=== PATIENT | female | born 1945 | race Caucasian/White ===

== ENCOUNTER 2019-11-16 05:19 | Inpatient (IN) ==
--- NOTE | 2019-11-01 16:14 | PAT Medication Instructions ---
Medication Instructions Date of Service November 01, 2019 Home Medications aspirin 81 mg tablet,delayed release 81 mg PO HS atorvastatin 10 mg tablet 10 mg PO HS levothyroxine 75 mcg capsule 75 mcg PO QAM calcium carb-vitamin D3-vit K2 2 tab PO HS fluticasone propionate [Flonase Allergy Relief] 1 spray INTRANASAL QAM loratadine [Claritin] 10 mg PO HS PRN rizatriptan [Maxalt] 10 mg PO UD PRN Take morning of surgery With a small sip of water, OTHERWISE NOTHING TO EAT OR DRINK AFTER MIDNIGHT: levothyroxine 75 mcg capsule 75 mcg PO QAM fluticasone propionate [Flonase Allergy Relief] 1 spray INTRANASAL QAM rizatriptan [Maxalt] 10 mg PO UD PRN (if needed) Take evening before surgery aspirin 81 mg tablet,delayed release 81 mg PO HS atorvastatin 10 mg tablet 10 mg PO HS calcium carb-vitamin D3-vit K2 2 tab PO HS loratadine [Claritin] 10 mg PO HS PRN (if needed) rizatriptan [Maxalt] 10 mg PO UD PRN (if needed) Other Notes If you have any questions please call us at [phone] or [phone] or [phone] or [phone]
--- NOTE | 2019-11-05 10:48 | Anesthesiology Consultation ---
Date of Service November 05, 2019 Assessment & Plan (1) Encounter for pre-operative examination: COVID Status: As of 11/01 nurse assessment, patient denies travel to endemic area, known exposure/sick contacts, or symptoms of COVID19. Preoperative COVID19 testing to be completed prior to surgery. Chart Review Chart Review: Acceptable Risk for Surgery and Patient seen in Pre Admission Testing Teaching & Discussion Instructed NPO after midnight before surgery, except medications with 15 cc of water. Medication instructions provided according to the [facility] guidelines. History Surgery Operation Date: 10/12/19 12:50 Proposed Procedures p Right Anterior Total Hip Arthroplasty - Jason Del Castillo DO Operation Date: 11/16/19 07:00 Proposed Procedures p Right Anterior Total Hip Arthroplasty - Jason Del Castillo DO Height/Weight Height: 5 ft 6 in Weight: 61.4 kg Allergies Allergy/AdvReac Type Severity Reaction Status Date / Time nitrofurantoin Allergy Mild upset Verified 10/29/19 09:50 stomach Medications Home Medications Medication Instructions Recorded Confirmed Last Taken aspirin 81 mg tablet,delayed 81 mg PO HS 07/25/19 10/29/19 Unknown release atorvastatin 10 mg tablet 10 mg PO HS 07/25/19 10/29/19 Unknown levothyroxine 75 mcg capsule 75 mcg PO QAM 07/25/19 10/29/19 Unknown calcium carb-vitamin D3-vit K2 2 tab PO HS 09/14/19 10/29/19 Unknown fluticasone propionate [Flonase 1 spray INTRANASAL QAM 09/14/19 10/29/19 Unknown Allergy Relief] loratadine [Claritin] 10 mg PO HS PRN 09/14/19 10/29/19 Unknown rizatriptan [Maxalt] 10 mg PO UD PRN 09/14/19 10/29/19 Unknown Past Medical History Medical History (Updated 11/06/19 @ 12:41 by Frandy Ramos) Fallot tetralogy s/p repair/correction at age 20. Heart murmur Mild MR on echo 2018. No murmur noted on exam at [facility]. Hx of migraines Hyperlipidemia Hypothyroidism Osteoarthritis Exercise / Class Metabolic Activity II 4-5 Yardwork/Stairs/Walk up hill (limited by hip pain but no SOB or CP, does stairs daily) Past Family History Family History Mother Family history of diabetes mellitus Uncle Family history of diabetes mellitus Grandfather (Paternal) Family history of diabetes mellitus PT STATES MATERNAL GRANDFATHER Other Prostate cancer Past Surgical History Surgical History H/O heart surgery AT AGE 20 REPAIRED VSD AND PULMONARY OVERRIDE REPAIR (AT [place]) History of cardiac cath History of colonoscopy [place] teeth removed Past Anesthesia History No Hx of Anesthesia Complications and No Family Hx of Anesthesia Complications History of PONV No Hx of PONV and No Hx of Motion Sickness Social History Smoking Status: Never smoker Do You Dip or Chew Tobacco: No Hx Alcohol Use: Yes Alcohol type: hard liquor alcohol intake frequency: a few times a month Alcohol Intake Frequency Comment: 1 X A MONTH Hx Substance Use: No substance use type: does not use Review of Systems Pt denies any recent chest pain, shortness of breath, palpitations, cough, fever or URI. Physical Exam Vital Signs BP: 90/60 (pt asymptomatic, reports this is normal for her) P: 60bpm SPO2: 97% RA T: 97.7 F R: 16 ENMT Mouth: + dental restorations (few crowns on molars); no chipped teeth and no loose teeth Thyromental Distance: > or= 3.5 Finger Breadths (4) Mallampati Class: II Neck normal visual inspection; neck extension not limited Respiratory normal respiratory effort Auscultation: lungs clear to auscultation bilaterally Cardiovascular Rate/Rhythm: regular rate and regular rhythm Heart Sounds: no murmur Extremities: no edema Chest (Breasts) Additional Comments: Protuberant sternum Testing Laboratory Results 11/05/19 10:56 11/05/19 10:56 PT 10.9 Seconds (9.0-12.0) 11/05/19 10:56 INR 1.0 (0.9-1.1) 11/05/19 10:56 APTT 28.8 Seconds (21.0-31.0) 11/05/19 10:56 Blood Type A Positive 11/05/19 10:56 Antibody Screen NEGATIVE 11/05/19 10:56 Electrocardiogram Date: 06/13/19 Findings: + NSR @ (62bpm) and + RBBB No significant change from 06/13/18. Chest X-Ray Date: 11/05/19 IMPRESSION: 1. Right-sided aortic arch 2. Indistinctness of the left heart border, likely chronic 3. No evidence of failure. No evidence of lobar consolidation. Echocardiogram Date: 07/24/18 EF: 59% Aortic root is mildly enlarged with diameter of 3.8 cm. The proximal ascending thoracic aorta is mildly enlarged with diameter 4.1 cm. There is an intact ventricular septal patch with no residual VSD. The LV wall thickness and wall motion are normal. LV systolic function is normal. Grade 1 diastolic dysfunction. Mild mitral regurgitation present. Pulmonic stenosis is absent. There is no significant pulmonary regurgitation. Compared to the prior study dated 09/26/2014, there is been no significant interval change, with stable measurements of the aortic root and proximal ascending aorta.
--- NOTE | 2019-11-05 11:24 | XRay Report ---
XR chest Pre-admission PA/Lat CLINICAL HISTORY: Preoperative chest COMPARISON STUDY: No previous studies for comparison. FINDINGS: There are postsurgical changes of midline sternotomy. There is a right-sided aortic arch. T he heart is normal in size. There is indistinctness the left heart border finding which is likely chr onic. There is no lobar consolidation. There are no pleural effusions. There is no failure.[ IMPRESSION: 1. Right-sided aortic arch 2. Indistinctness of the left heart border, likely chronic 3. No evidence of failure. No evidence of lobar consolidation.. ACT 112: Negative or not required by law. Electronically signed by: Andrea Paniagua M.D. 11/05/2019 11:23 AM
[2019-11-05 11:49] LABS: Basophils # (auto) 0.02 K/uL (0-0.2); Basophils % (auto) 0.3 %; Eosinophils # (auto) 0.12 K/uL (0-0.5); Hematocrit (blood only) 42.3 % (37-47); Hemoglobin 14.3 g/dL (12.0-16.0); Immature Granulocytes # (auto) 0.02 K/uL (0.00-0.02); Immature Granulocytes % (auto) 0.3 %; Lymphocytes # (auto) 1.75 K/uL (1.2-3.4); Lymphocytes % (auto) 28.8 %; Mean Corpuscular Hemoglobin 30.4 pg (25-34); Mean Corpuscular Hgb Conc 33.8 g/dL (32-36); Mean Corpuscular Volume 89.8 fL (80-100); Mean Platelet Volume 9.4 fL (7.4-10.4); Monocytes # (auto) 0.61 K/uL (0.11-0.59); Neutrophils # (auto) 3.55 K/uL (1.4-6.5); Neutrophils % (auto) 58.6 %; Platelet Count 246 K/uL (130-400); RDW Coefficient of Variation 13.4 % (11.5-14.5); RDW Standard Deviation 44.1 fL (36.4-46.3); Red Blood Count 4.71 M/uL (4.2-5.4); White Blood Count 6.07 K/uL (4.8-10.8)
[2019-11-05 11:57] LABS: BUN Creatinine Ratio 18.7 (10-20); Calcium 9.3 mg/dl (8.5-10.1); Creatinine Clr Calc Pharmacy 50.6 ml/min; Est GFR (African American) 70.2; Est GFR (Non-African American) 60.6; Potassium 4.5 mmol/L (3.5-5.1)
[2019-11-05 12:09] LABS: Partial Thromboplastin Time 28.8 Seconds (21.0-31.0); Prothrombin Time 10.9 Seconds (9.0-12.0)
--- NOTE | 2019-11-15 15:42 | History & Physical Report ---
Date of Service November 15, 2019 Assessment & Plan (1) Osteoarthritis of right hip: We will proceed with a right anterior total hip arthroplasty. Postoperatively she will be started on aspirin for DVT prophylaxis and kept overnight in the hospital for postoperative medical management. She plans to use home health upon discharge. Debbie is a low risk for joint placement surgery. She does not have any major comorbidities. Present on Admission?: Yes History of Present Illness Chief Complaint: Primary osteoarthritis of the right hip Primary Care Provider: Isaias Jefferson DO Debbie is a pleasant 73-year-old female who has been having a 1-1/2 to 2-year history of increasing right hip pain. The pain is in her groin and radiates down to her back side. It has been getting worse over time. She has done conservative treatment including physical therapy. She has failed injections into the hip joint as well. X-rays and clinical examination have been diagnostic for advanced osteoarthritis of the right hip. After failing extensive conservative treatment, she has elected to proceed with a right anterior total hip arthroplasty. Allergies Allergy/AdvReac Type Severity Reaction Status Date / Time nitrofurantoin Allergy Mild upset Verified 10/29/19 09:50 stomach Home Medications Home Medications Medication Instructions Recorded Confirmed Type aspirin 81 mg tablet,delayed 81 mg PO HS 07/25/19 10/29/19 History release atorvastatin 10 mg tablet 10 mg PO HS 07/25/19 10/29/19 History levothyroxine 75 mcg capsule 75 mcg PO QAM 07/25/19 10/29/19 History calcium carb-vitamin D3-vit K2 2 tab PO HS 09/14/19 10/29/19 History fluticasone propionate [Flonase 1 spray INTRANASAL QAM 09/14/19 10/29/19 History Allergy Relief] loratadine [Claritin] 10 mg PO HS PRN 09/14/19 10/29/19 History rizatriptan [Maxalt] 10 mg PO UD PRN 09/14/19 10/29/19 History Past Med/Surg History Medical History Fallot tetralogy s/p repair/correction at age 20. Heart murmur Mild MR on echo 2018. No murmur noted on exam at [facility]. Hx of migraines Hyperlipidemia Hypothyroidism Osteoarthritis Surgical History H/O heart surgery AT AGE 20 REPAIRED VSD AND PULMONARY OVERRIDE REPAIR (AT [place]) History of cardiac cath History of colonoscopy [place] teeth removed Family History Mother Family history of diabetes mellitus Uncle Family history of diabetes mellitus Grandfather (Paternal) Family history of diabetes mellitus PT STATES MATERNAL GRANDFATHER Other Prostate cancer Social History Preferred Language: Wolof Communication Ability: Effective Proposition Player Required: No Beliefs That Will Affect Care: None Current Living Situation: Alone Other Information That Helps Us Care for You: No Feels Safe at Home: Yes Safety Concerns: Feels Safe At This Time Smoking Status: Never smoker Do You Dip or Chew Tobacco: No ; Second Hand Exposure: No ; Tobacco Cessation Education Requested by Patient: No Hx Alcohol Use: Yes Alcohol type: hard liquor Hx Substance Use: No Review of Systems Review of Systems: All systems reviewed & are unremarkable except as noted in HPI & below Physical Exam Constitutional: WD/WN, vitals as above Eyes: PERRL, conjunctivae normal, anicteric sclerae ENMT: external ear and nose normal, oropharynx normal Neck: trachea midline, no thyromegaly Respiratory: normal respiratory effort Cardiovascular: RRR, no murmur, no edema Gastrointestinal (Abdomen): normal bowel sounds, soft, nontender, no h epatosplenomegaly Musculoskeletal: Physical examination of the right hip reveals decreased range of motion with flexion, internal and external rotation. There is significant groin pain with forced internal rotation of the hip his leg lengths are essentially equal. Psychiatric: A+Ox3, euthymic affect Results & Data Results & Data ([facility]) Diagnostic Findings Radiographs of the right hip and pelvis demonstrate advanced osteoarthritis with joint space narrowing osteophyte formation and [id number] articulation. PG Care Time/CCT Total # of Minutes Spent Total Time Spent with Patient: Total time spent is greater than 50% in coordination of care (as documented) at patient's floor/unit and/or counseling patient: Coding Level of Care Code 06309 Initial Inpt Care Lvl 3 Diagnoses Osteoarthritis of right hip M16.11
[2019-11-16] MEDS ORDERED: TRAMADOL HCL 50 MG TABLET PO SCH (06:00)
[2019-11-16] MEDS ORDERED: LR 60ML/HR IV SCH (06:00)
[2019-11-16] MEDS ORDERED: ACETAMINOPHEN 500 MG TAB PO SCH (06:00)
[2019-11-16] MEDS ORDERED: CEFAZOLIN 1000MG 1,000 MG/7.5 ML SYR IV SCH (06:00)
[2019-11-16] MEDS ORDERED: TRANEXAMIC ACID 1,000 MG **IV Intra-op IV SCH (06:00)
[2019-11-16] MEDS ORDERED: LR 500ML BOLUS, THEN 15ML/HR IV SCH (06:00)
[2019-11-16] MEDS ORDERED: GABAPENTIN 300 MG CAP PO SCH (06:00)
[2019-11-16] MEDS ORDERED: dexAMETHasone 4 MG TAB PO SCH (06:00)
[2019-11-16] MEDS ORDERED: FAMOTIDINE 20 MG TAB PO SCH (06:00)
[2019-11-16] MEDS ORDERED: ROPIVACAINE 0.5% HCL/PF 150 MG, BUPIVACAINE 0.5% MPF 30 ML, EPINEPHrine 30MG/30ML (OR U... INSTIL SCH (06:00)
[2019-11-16] MEDS ORDERED: BUPIVACAINE 0.5 % 5 MG/1 ML PF 10ML VIAL ONE (06:19)
[2019-11-16] MEDS ORDERED: fentaNYL citrate 100 MCG/2 ML VIAL ONE (06:23)
[2019-11-16] MEDS ORDERED: MIDAZOLAM HCL 1 MG/ML 2ML VIAL ONE (06:23)
[2019-11-16] MEDS ORDERED: PROPOFOL IV EMULSION 10 MG/ML 20 ML VIAL IV ONE (06:23)
[2019-11-16] MEDS ORDERED: ONDANSETRON INJ 2 MG/ML 2 ML VIAL IV PRN ×2 (06:37→09:57)
[2019-11-16] MEDS ORDERED: ATROPINE SULFATE 0.1 MG/ML 10ML SYR IV PRN (06:37)
[2019-11-16] MEDS ORDERED: fentaNYL citrate 100 MCG/2 ML VIAL IV PRN (06:37)
[2019-11-16] MEDS ORDERED: ePHEDrine sulfate 50 MG/ML AMP IV PRN (06:37)
--- NOTE | 2019-11-16 06:37 | History & Physical Bridge Note ---
Date of Service November 16, 2019 History & Physical Bridge Note I have examined the patient, reviewed the History & Physical and in the interval since the performance of the History & Physical I have noted the following changes of clinical significance: no changes noted
[2019-11-16] MEDS ORDERED: ORTHO JOINT ANESTHETIC ONE (07:02)
[2019-11-16] MEDS ORDERED: ePHEDrine sulfate 50 MG/ML SYR ONE (07:24)
[2019-11-16] MEDS ORDERED: PHENYLEPHRINE 100MCG/ML 5ML SYR ONE (07:24)
[2019-11-16] MEDS ORDERED: PHENYLEPHRINE HCL 10 MG/ML VIAL ONE (07:36)
--- NOTE | 2019-11-16 08:14 | Operative Report ---
PG Post Operative Report Pre & Post Diagnosis Operation Date: 10/12/19 12:50 <No data on this case meets the specified criteria> Operation Date: 11/16/19 07:00 Pre-Op Diagnosis: Degenerative Joint Disease Right Hip Post-Op Diagnosis: Degenerative Joint Disease Right Hip I identified the patient and participated in the time-out.: Yes Procedure Operation Date: 10/12/19 12:50 <No data on this case meets the specified criteria> Operation Date: 11/16/19 07:00 Actual Procedures p Right Anterior Total Hip Arthroplasty(Right) - Jason Del Castillo DO Surgeon Jason Del Castillo, Casting Plug Assembler Jason Gould PAC Estimated Blood Loss 200 Findings Consistent with Post-Op Diagnosis Specimens Right femoral head Complications none Disposition Disposition: Recovery Room Indications Debbie is a pleasant 74-year-old female who is been dealing with chronic increasing right hip and groin pain. X-rays and clinical examination have been diagnostic for primary osteoarthritis of the right hip. After failing conservative treatment, she has elected to proceed with a right anterior total hip arthroplasty. Description of Procedure Implants used I used a Biomet Taperloc total hip arthroplasty system with a size 10 high offset micro Taperloc stem, a 52 mm G7 cup with a 25mm screw, an E1 polyethylene liner, a 36 mm ceramic head with a 0 neck. Debbie arrived at the hospital for the above procedure. She was seen in the preoperative holding area and the operative extremity was identified and signed. She was given a spinal anesthetic, a preoperative antibiotic, and TXA. She was then taken back to the operating room and laid on the table in the supine position. She was given basic sedation. The operative leg was secured to a Puristst leg positioner. The hip was then prepped and draped in sterile fashion. A timeout was done and the patient and the operative extremity was properly identified. An anterior approach was used. Dissection was taken down through the fascia and the tensor muscle belly was retracted laterally and the rectus was retracted medially. The circumflex vessels were identified and ligated. The capsule was then incised and tagged for later repair. The femoral neck was then cut and the femoral head was removed. The acetabulum was exposed. Time was spent doing a complete circumferential labral release. Sequential reaming of the acetabulum up to a size 51 reamer was done. Final reamings were done under fluoroscopy to ensure appropriate version. A Biomet 52 mm G7 cup was then impacted into place. A single 25 mm screw was placed. The E1 polyethylene liner was then snapped into place. Surrounding soft tissues were then injected with 100 cc of an orthopedic pain control cocktail. The proximal femur was then exposed. Sequential broaching up to a size 10 broach was done. Off that broach a size 32 head with a 0 neck was trialed. The hip was reduced and fluoroscopic images showed anatomic alignment of the implants in acceptable length. The broach was removed. The final size [] micro Taperloc stem was then impacted into place. A ceramic [] mm head with a [] neck was then impacted onto the stem and the hip was reduced. Final fluoroscopic images showed anatomic alignment of the hip. The capsule was then closed with #1 Vicryl suture. A dilute betadyne lavage was then done for 3 minutes. The joint was then irrigated with normal saline solution. The fascia was closed with #1 PDS suture. Skin was closed with 2-0 Vicryl, benny, and a Silverlon dressing. She was then transferred to a hospital bed and taken to the post anesthesia care unit in stable condition. She tolerated the procedure well. Jason Gould PA-C, was present for the entire procedure. He was critical for patient positioning, prepping, draping, retraction exposure, wound closure and application of sterile dressing. I attest to the content of the Intraoperative Record and any orders documented therein. Any exceptions are noted below.
--- NOTE | 2019-11-16 08:32 | Fluoroscopy Report ---
FL hip RT 1V CLINICAL HISTORY: RT ANTERIOR HIP COMPARISON STUDY: Pelvis and right hip radiographs July 25, 2019. FLUOROSCOPY TIME: 19 seconds. FLUOROSCOPIC IMAGES: 1 FINDINGS: Fluoroscopy was provided during total right hip arthroplasty. There is no fracture or unexp ected radiopaque foreign body. There is an acetabular screw. IMPRESSION: Fluoroscopy provided during total right hip arthroplasty. ACT 112: Negative or not required by law. Electronically signed by: Rajendra Curry M.D. 11/16/2019 8:31 AM
--- NOTE | 2019-11-16 09:25 | Anesthesiology Progress Note ---
Date of Service November 16, 2019 Anesthesia Post Procedure Vital Signs Vital Signs: Temp Pulse Pulse Resp BP BP Pulse Ox 11/16/19 09:15 79 14 96/54 L 99 11/16/19 09:05 86 20 93/54 L 98 11/16/19 08:55 89 21 96/50 L 98 11/16/19 08:45 85 17 95/58 L 97 11/16/19 08:35 97.0 F L 91 H 16 91/61 L 97 11/16/19 06:30 97.9 F 72 18 124/64 100 11/16/19 05:59 97.9 F 98 H 18 115/68 98 Transfer of Care Handoff Completed per policy Notes Mental Status: alert / awake / arousable and participated in evaluation Patient Amnestic to Procedure: Yes Nausea / Vomiting: adequately controlled Pain: adequately controlled Airway Patency, RR, SpO2: stable & adequate BP & HR: stable & adequate Hydration State: stable & adequate Neuraxial Anesthesia: was administered and sensory block is resolving Anesthetic Complications: no major complications apparent and Pt Satisfied with anesthetic care
--- NOTE | 2019-11-16 09:26 | XRay Report ---
XR hip 1V RT w pelvis CLINICAL HISTORY: IN PACU - A/P PELVIS and LATERAL HIP postoperative COMPARISON: None. DISCUSSION: Anatomic alignment post total right hip arthroplasty. Good contact between prosthetic and underlying bone. Expected postoperative soft tissue change IMPRESSION: Anatomic alignment post total right hip arthroplasty. ACT 112: Negative or not required by law. The above report was generated using voice recognition software. It may contain grammatical, syntax or spelling errors. Electronically signed by: Javier Tomas M.D. 11/16/2019 9:25 AM
[2019-11-16] MEDS ORDERED: MAGNESIUM HYDROXIDE SUSP 30 ML UDC PO PRN (09:57)
[2019-11-16] MEDS ORDERED: RIZATRIPTAN BENZOATE 10 MG TAB PO PRN (09:57)
[2019-11-16] MEDS ORDERED: NALOXONE HCL 0.4 MG/1 ML VIAL/CARP IV PRN (09:57)
[2019-11-16] MEDS ORDERED: LORATADINE 10 MG TAB PO PRN (09:57)
[2019-11-16] MEDS ORDERED: METOCLOPRAMIDE HCL INJ 5 MG/ML 2 ML VIAL IV PRN (09:57)
[2019-11-16] MEDS ORDERED: bisacodyL 10 MG SUPP PR PRN (09:57)
[2019-11-16] MEDS ORDERED: HYDROmorphone INJ 0.5 MG/0.5 ML SYR IV PRN (09:57)
[2019-11-16] MEDS ORDERED: OXYCODONE HCL IR 5 MG TAB (IMMEDIATE RELEASE) PO PRN (09:57)
[2019-11-16] MEDS: SODIUM CHLORIDE 0.9% 1000ML 1,000 ML IV SCH ×2 (11:18→21:00)
[2019-11-16] MEDS: FLUTICASONE PROPIONATE NA SPR 16 GM BTL SCH (11:19)
[2019-11-16] MEDS: DOCUSATE SODIUM 100 MG CAP PO SCH ×2 (11:22→21:52)
[2019-11-16] MEDS: ASPIRIN 81 MG ECTAB PO SCH ×2 (11:22→21:52)
[2019-11-16] MEDS: MULTIVITAMIN TAB PO SCH (11:22)
[2019-11-16] MEDS: KETOROLAC TROMETHAMINE 15 MG/ML VIAL IV SCH ×3 (11:22→23:47)
[2019-11-16] MEDS: CEFAZOLIN 2000MG 2,000 MG/15 ML SYR IV SCH ×2 (13:25→21:53)
[2019-11-16] MEDS: ACETAMINOPHEN 500 MG TAB PO SCH ×2 (13:26→21:53)
[2019-11-16] MEDS ORDERED: SENNA 8.6 MG TAB PO SCH (21:00)
[2019-11-16] MEDS ORDERED: ATORVASTATIN 10 MG TAB PO SCH (21:00)
[2019-11-17] MEDS: SODIUM CHLORIDE 0.9% 1000ML 1,000 ML IV SCH (05:36)
[2019-11-17] MEDS: ACETAMINOPHEN 500 MG TAB PO SCH ×2 (05:37→13:25)
[2019-11-17] MEDS: KETOROLAC TROMETHAMINE 15 MG/ML VIAL IV SCH ×2 (05:38→11:50)
[2019-11-17 05:53] LABS: Basophils # (auto) 0.01 K/uL (0-0.2); Basophils % (auto) 0.1 %; Eosinophils # (auto) 0.01 K/uL (0-0.5); Eosinophils % (auto) 0.1 %; Hematocrit (blood only) 31.8 % (37-47); Hemoglobin 10.4 g/dL (12.0-16.0); Immature Granulocytes # (auto) 0.02 K/uL (0.00-0.02); Immature Granulocytes % (auto) 0.2 %; Lymphocytes # (auto) 1.18 K/uL (1.2-3.4); Lymphocytes % (auto) 12.3 %; Mean Corpuscular Hemoglobin 29.5 pg (25-34); Mean Corpuscular Hgb Conc 32.7 g/dL (32-36); Mean Corpuscular Volume 90.3 fL (80-100); Mean Platelet Volume 9.1 fL (7.4-10.4); Monocytes # (auto) 0.98 K/uL (0.11-0.59); Monocytes % (auto) 10.3 %; Neutrophils # (auto) 7.36 K/uL (1.4-6.5); Platelet Count 181 K/uL (130-400); RDW Coefficient of Variation 13.3 % (11.5-14.5); Red Blood Count 3.52 M/uL (4.2-5.4); White Blood Count 9.56 K/uL (4.8-10.8)
[2019-11-17 06:21] LABS: BUN Creatinine Ratio 20.9 (10-20); Creatinine Clr Calc Pharmacy 74.4 ml/min; Est GFR (African American) 103.3; Est GFR (Non-African American) 89.2; Potassium 4.1 mmol/L (3.5-5.1)
[2019-11-17] MEDS ORDERED: LEVOTHYROXINE SODIUM 75 MCG TABLET PO SCH (06:30)
--- NOTE | 2019-11-17 07:15 | Orthopedic Progress Note ---
Date of Service November 17, 2019 Assessment & Plan (1) History of right hip replacement: Overall she is doing very well. She is not having much pain in the right hip. She will be seen by physical therapy today for ambulation and range of motion exercises. She is on aspirin for DVT prophylaxis. She can be discharged home later today. She will follow-up with orthopedics in 2 weeks. Present on Admission?: Yes Subjective Debbie was seen and examined at bedside this morning. Overall she is doing very well. She is not having much pain in the right hip. She is happy with her progress. She has been up and ambulating to the bathroom. She has no complaints. Physical Exam Musculoskeletal: On physical examination of the right hip, the Silverlon dressing is clean and dry. Her leg lengths are equal. She has active dorsiflexion and plantarflexion of the right ankle. Results & Data ([facility]) Vital Signs (Past 12 Hours) Vital Signs Temp Pulse Resp BP Pulse Ox 11/17/19 02:33 36.6 C 65 16 94/56 L 98 11/16/19 23:21 36.5 C 63 16 94/58 L 98 11/16/19 20:41 36.3 C L 60 16 91/50 L 99 Laboratory Results H & H 11/05/19 11/17/19 Range/Units 10:56 05:29 Hgb 14.3 10.4 L (12.0-16.0) g/dL Hct 42.3 31.8 L (37-47) % Coagulation 11/05/19 Range/Units 10:56 INR 1.0 (0.9-1.1) Diagnostic Findings Postoperative x-rays of the right hip show the prosthesis to be in anatomic alignment without any evidence of fracture, dislocation, or loosening. PG Care Time/CCT Total # of Minutes Spent Total Time Spent with Patient: Total time spent is greater than 50% in coordination of care (as documented) at patient's floor/unit and/or counseling patient: Coding Level of Care Code None Diagnoses History of right hip replacement Z96.641
--- NOTE | 2019-11-17 07:16 | Discharge Summary ---
Date of Service November 17, 2019 Admission HPI Per Admitting Provider Debbie is a pleasant 73-year-old female who has been having a 1-1/2 to 2-year history of increasing right hip pain. The pain is in her groin and radiates down to her back side. It has been getting worse over time. She has done conservative treatment including physical therapy. She has failed injections into the hip joint as well. X-rays and clinical examination have been diagnostic for advanced osteoarthritis of the right hip. After failing extensive conservative treatment, she has elected to proceed with a right anterior total hip arthroplasty. Principal Diagnosis Right total hip arthroplasty Discharge Data Allergies Allergy/AdvReac Type Severity Reaction Status Date / Time nitrofurantoin Allergy Mild upset Verified 11/16/19 05:47 stomach Consultations 11/17/19 08:00 Consult Case Management - Discharge Planning Routine Procedures Performed Operation Date: 10/12/19 12:50 <No data on this case meets the specified criteria> Operation Date: 11/16/19 07:00 Actual Procedures p Right Anterior Total Hip Arthroplasty(Right) - Jason Del Castillo DO Ordered Studies 11/16/19 07:00 FL fluoroscopy <1hr Routine FL hip RT 1V Routine Hospital Course (1) History of right hip replacement: On November 16, 2019 Debbie arrived at [facility] and underwent a right total hip arthroplasty without complication. She had a spinal anesthetic. Postoperatively she was started on aspirin for DVT prophylaxis and transferred to the general orthopedic floors. Her hospital course was uneventful. On postop day #1 her H&H was stable and her pain was well controlled. She was able to participate well with physical therapy doing ambulation and range of motion exercises. She was then discharged home. She will follow-up with orthopedics in 2 weeks. Total Time Total Time Spent Total Time Spent (In Minutes): 20 Discharge Plan Discharge Items Patient Disposition: Home - Home Health Services Reason For Visit: Degenerative Joint Disease Right Hip Discharge Diagnosis: Right total hip arthroplasty Activity: As commented below Non-emergency contact: Surgeon Call non-emergency contact if: your wound has increased redness and your wound has increased drainage Follow-up/Referrals: Isaias Jefferson DO [Primary Care Provider] - Diet: Regular Addtl Attending Provider Instructions: Activity and Therapy Recommendations: * If you are using [facility] then therapy will be provided at your home until they feel you have accomplished all of your goals. * If you are using [facility] then Physical Therapy will be provided until they feel you are ready to start Outpatient Physical Therapy. * If you are not using home therapy then Outpatient Physical Therapy should start about 3-5 days from your day of surgery. Therapy will last about 6-10 weeks * You were shown a series of exercises in the hospital. Do these exercises three times each day including the exercises you were shown in physical therapy. * Get up and walk several times each day.~ For the first four weeks, try not to stand or walk for more than one hour at a time. If you do stand or walk for more than one hour, you will not hurt anything, but your leg will likely swell.~~ * As you feel comfortable, you may change from the walker or crutches to a cane and~then to independent walking. Medications: * Narcotic You will likely be sent home from the hospital with a prescription for the narcotic pain medication that worked best throughout your stay. * Aspirin Most patients will be required to take Aspirin 81mg twice a day for 6 weeks after surgery. This is obtained [id number] and a prescription is not necessary. * Other medications may be prescribed for specific circumstances. If you have any questions, please call the office at . * Resume previous home medications unless otherwise instructed TEDs/Elastic Stockings: The white elastic stockings help limit swelling and prevent blood clots from forming in your legs. The more you wear them, the more they work. Wear them for six weeks. Dressing Care: Leave the Silverlon dressing on for 7 days. After 7 days you may remove the dressing. You may leave the benny open to air or cover them with a dry dressing so they do not rub on your pants. The benny will be removed at your 2 week follow-up appointment. Showering: You may shower immediately with the Silverlon dressing in place. Do not soak the dressing. After the dressing is removed you may shower normally with the benny exposed. Let soapy water run over the benny and pat them dry. Things To Watch For: * Drainage from the incision site that occurs more than one week after your surgery. * Increased redness at the incision site. * Fever above 102 degrees Fahrenheit. * Unusual chest pain or shortness of breath. * Call [facility] at with any of the above problems Follow-Up Visit: Follow-up with Dr. Del Castillo's PA (Jason Gould) 2-3 weeks after your day of surgery. He will remove your benny and answer any questions. If you have any additional questions or concerns, Dr Del Castillo is usually in the office at the same time and will be available An appointment was probably scheduled when you signed-up for surgery in the office. If you have any questions call Office Instructions: More detailed instructions as well as Frequently Asked Questions were provided in a folder by our office when you signed-up for surgery. Please review these instructions when you get home. If you have any further questions or concerns, please feel free to call the office at [phone] Pending Studies at Discharge: No Stand-Alone Forms: My [facility] LSAT [place], Smoking Cessation Medications and DC Order Prescriptions: New oxycodone 5 mg Tablet 5 mg PO Q4H PRN (Reason: pain) Qty: 30 RF: 0 Continued atorvastatin [Lipitor] 10 mg tablet 10 mg PO HS RF: 0 levothyroxine 75 mcg capsule 75 mcg PO QAM RF: 0 loratadine [Claritin] 10 mg Tablet 10 mg PO HS PRN (Reason: ALLERGY RELIEF) RF: 0 calcium carb-vitamin D3-vit K2 600 mg-1,000 unit-90 mcg Tablet 2 tab PO HS RF: 0 rizatriptan [Maxalt] 10 mg Tablet 10 mg PO UD PRN (Reason: MIGRAINES) RF: 0 fluticasone propionate [Flonase Allergy Relief] 50 mcg/actuation [place],Suspension 1 spray INTRANASAL QAM RF: 0 Changed aspirin [Adult Aspirin Regimen] 81 mg tablet,delayed release (DR/EC) 81 mg PO BID 42 Days Qty: 0 RF: 0 Discharge Orders: Discharge Order (Routine); Ordered 11/17/19 Ordered By: Jason Del Castillo Admission Data Admit Date/Time: 11/16/19 08:37 Attending Provider: Jason Del Castillo Admit Provider: Jason Del Castillo Primary Care Provider: Isaias Jefferson Coding Level of Care Code D/C Day Management <30 mins Diagnoses History of right hip replacement Z96.645
[2019-11-17] MEDS ORDERED: dexAMETHasone 4 MG TAB PO SCH (08:00)
[2019-11-17] MEDS: ASPIRIN 81 MG ECTAB PO SCH (08:48)
[2019-11-17] MEDS: DOCUSATE SODIUM 100 MG CAP PO SCH (08:48)
[2019-11-17] MEDS: FLUTICASONE PROPIONATE NA SPR 16 GM BTL SCH (08:49)
[2019-11-17] MEDS: MULTIVITAMIN TAB PO SCH (08:49)
== END 2019-11-17 14:03 | disposition home health service (06) | DRG 470 ==
LOC: ASU 05:19 → 3E 08:37